=== PATIENT | male | born 1975 | race African-American/Black ===

== ENCOUNTER 2022-02-05 21:12 | Emergency (ER) | payer OTHER ==
[2022-02-05 21:26] VITALS: BP 125/78; TEMP 98.1; BMI 37.6
[2022-02-06] MEDS ORDERED: ACETAMINOPHEN 500 MG TABLET (FP) PO ONE (02:42)
[2022-02-06] MEDS ORDERED: ACETAMINOPHEN 325 MG TABLET (FP) ONE (02:43)
[2022-02-06 05:09] VITALS: PULSE 80
== END 2022-02-06 05:09 | disposition home or self-care (01) ==
LOC: JER 21:12 → JERFT 21:12 → JER 02-06 05:09
DX: M54.50 Low back pain, unspecified (principal)
CPT/HCPCS: 99283-25